=== PATIENT | male | born 1970 | race Caucasian/White ===

== ENCOUNTER 2020-01-03 10:05 | Emergency (ER) | payer OTHER, SELFPAY ==
--- NOTE | ~2020-01-03 | CT_ITS ---
EXAMINATION: CT abdomen pelvis wo con EXAM DATE: 01/03/2020 10:37 INDICATION: Right flank pain. TECHNIQUE: Spiral CT of the abdomen and pelvis was performed without contrast. Axial, coronal and sag ittal images were reviewed. The dose-length product (DLP) for this examination was 1404.67 mGy-cm. The exposure was tailored according to patient size (auto mA exposure control), and iterative reconst ruction (ASIR) was used as additional dose reduction technique. There is no prior study for comparis on. FINDINGS: There is a 5 x 7 mm stone in the right ureteropelvic junction with mild resultant hydroneph rosis. No other genitourinary calcifications. The prostate is unremarkable. The bladder is unremark able. The liver, spleen, adrenal glands and pancreas are unremarkable. Gallbladder is unremarkable. No biliary obstruction. There is no retroperitoneal or pelvic lymphadenopathy. The appendix is normal. The stomach and small bowel are unremarkable. There is expected amount of c olonic stool. No free intraperitoneal gas. The heart is normal in size. There are no pericardial or pleural effusions. Right basilar granuloma. There are no osteoblastic or osteolytic lesions ban ntified. IMPRESSION: 1. Right UPJ 5 x 7 mm stone, mild hydronephrosis. Reviewed, dictated and finalized at location B.
--- NOTE | ~2020-01-03 | XR_ITS ---
EXAMINATION: XR abdomen/kub 1V EXAM DATE: 01/03/2020 10:42 INDICATION: Right UPJ 5 x 7 mm stone. TECHNIQUE: Frontal projection of the upper abdomen, frontal projection lower abdomen/pelvis for inter pretation. There is no prior study for comparison. FINDINGS: Right UPJ stone measuring up to 7 mm identified between the right L3 and L4 transverse pro cesses, indicated. Nonobstructive bowel gas pattern. There are mild bony degenerative changes. IMPRESSION: Right UPJ stone identified. Reviewed, dictated and finalized at location B. IMPRESSION: Right UPJ stone identified.
[2020-01-03 10:31] LABS: Basophils Percent Auto 0.7 % (0.2-1.2); Eosinophils Absolute Auto 0.1 K/mm3 (0-0.3); Eosinophils Percent Auto 1.3 % (0-4.4); Hematocrit 43.2 % (42.0-52.0); Hemoglobin 14.4 g/dL (14.0-18.0); Immature Granulocyte Absolute 0.01 K/mm3 (0.00-0.031); Immature Granulocyte Percent A 0.2 % (0-0.5); Lymphocytes Absolute Auto 1.82 K/mm3 (0.9-3.2); Lymphocytes Percent Auto 30.3 % (18.3-44.2); Mean Corpuscular HGB Conc 33.3 g/dl (32-36); Mean Corpuscular Hemoglobin 27.9 pg (26-34); Mean Corpuscular Volume 83.7 fl (80-100); Mean Platelet Volume 10.1 fl (7.4-10.4); Monocytes Absolute Auto 0.5 K/mm3 (0.1-0.6); Monocytes Percent Auto 8.5 % (2.6-8.5); Neutrophils Absolute Auto 3.6 K/mm3 (1.3-6.7); Platelet Count Result 165 k/mm3 (150-375); Red Blood Count 5.16 M/mm3 (4.6-6.20); Red Cell Distribution Width 13.2 % (11.5-14.5)
[2020-01-03 10:44] LABS: Alanine Aminotransferase 40 U/L (4-50); Albumin Level 4.9 g/dL (3.5-5.1); Alkaline Phosphatase 66 U/L (38-126); Anion Gap 10 mmol/L (8-16); Aspartate Amino Transferase 31 U/L (17-59); Bilirubin,Total 0.6 mg/dL (0.2-1.3); Blood Urea Nitrogen 21 mg/dL (9-20); Calcium 9.7 mg/dL (8.4-10.2); Carbon Dioxide 23 mmol/L (22-30); Chloride 105 mmol/L (98-107); Estimated Glomerular Filt Rate > 60; Glucose 107 mg/dL (75-110); Potassium 4.4 mmol/L (3.4-5.0); Sodium 138 mmol/L (137-145)
--- NOTE | 2020-01-03 10:45 | ED.ABDPAIN ---
HPI - Abdominal Pain General Chief Complaint: Abdominal Pain Stated Complaint: right flank pain Time Seen by Provider: 01/03/20 10:12 Source: patient Mode of arrival: ambulatory Limitations: no limitations History of Present Illness HPI narrative: Patient is a 49-year-old male who presents to emergency department for evaluation of right flank pain that began acutely today as a sharp stabbing pain that intensified patient denies any similar occurrence in the past has not taken anything for his symptoms patient on arrival to emergency department is in the room in no distress patient denies radiation of pain does note he had some sweats denies vomiting diarrhea a few days ago had dark urine Related Data Allergies Allergy/AdvReac Type Severity Reaction Status Date / Time No Known Allergies Allergy Verified 01/03/20 10:57 Review of Systems Review of Systems: All systems reviewed & are unremarkable except as noted in HPI and below PMFSH Past Medical History Medical History (Updated 01/03/20 @ 12:33 by Pato Garcia PA-C) Tear of distal tendon of biceps Surgical History Surgical History (Updated 01/03/20 @ 10:46 by Pato Garcia PA-C) History of orthopedic surgery Social History Social History Smoking status: Former smoker Smoking end date: 04/11/97 Alcohol intake: current Exam Narrative: Exam Narrative: GENERAL: Well-appearing, well-nourished, uncomfortable, and in no acute distress. HEAD: Normocephalic, atraumatic. EYES: PERRLA and EOMI. ENT: Nares clear, no rhinorrhea or epistaxis. Mucous membranes moist. CHEST: Clear to auscultation. No respiratory distress. No wheezes rales or rhonchi HEART: Regular rate and rhythm. No murmur heard. Normal peripheral pulses. ABDOMEN: Soft, nontender, distended EXTREMITIES: Normal range of motion. No edema. SKIN: Warm, dry, no rash. NEURO: No focal deficits. Alert and oriented x3. PSYCH: Normal mood and affect. Course Course Emergency Course: Patient will go to the operative suite for stenting is resting comfortably in the room in no distress felt appropriate for outpatient reevaluation. Consultations Consultation #1: Discussed case with urology who saw the patient in the emergency department and will take patient to the operative suite Date: 01/03/20 Time: 12:32 Vital Signs Vital signs: Vital Signs Temperature 98.5 F 01/03/20 10:51 Pulse Rate 62 01/03/20 10:51 Respiratory Rate 16 01/03/20 10:51 Blood Pressure 133/88 01/03/20 10:51 Pulse Oximetry 97 01/03/20 10:51 Temperature 98.5 F 01/03/20 10:51 Pulse Rate 58 L 01/03/20 12:09 Respiratory Rate 18 01/03/20 12:09 Blood Pressure 127/68 01/03/20 12:09 Pulse Oximetry 100 01/03/20 12:09 MDM - Abdominal Pain MDM Narrative Medical decision making narrative: Patient in the room at this time no distress feeling better with medications will go to the operative suite for stenting Lab Data Result diagrams: 01/03/20 10:24 01/03/20 10:24 Labs: Lab Results 01/03/20 01/03/20 01/03/20 Range/Units 10:24 10:24 11:07 WBC 6.0 (4.5-10.0) K/mm3 RBC 5.16 (4.6-6.20) M/mm3 Hgb 14.4 (14.0-18.0) g/dL Hct 43.2 (42.0-52.0) % MCV 83.7 (80-100) fl MCH 27.9 (26-34) pg MCHC 33.3 (32-36) g/dl RDW 13.2 (11.5-14.5) % Plt Count 165 (150-375) k/mm3 MPV 10.1 (7.4-10.4) fl Immature Gran % (Auto) 0.2 (0-0.5) % Neut % (Auto) 59.0 (45.5-73.1) % Lymph % (Auto) 30.3 (18.3-44.2) % [place] % (Auto) 8.5 (2.6-8.5) % Eos % (Auto) 1.3 (0-4.4) % Baso % (Auto) 0.7 (0.2-1.2) % Lymph # (Auto) 1.82 (0.9-3.2) K/mm3 [place] # (Auto) 0.5 (0.1-0.6) K/mm3 Eos # (Auto) 0.1 (0-0.3) K/mm3 Baso # (Auto) 0.0 (0.0-0.1) K/mm3 Abs Immat Gran (auto) 0.01 (0.00-0.031) K/mm3 Absolute Neuts (auto) 3.6 (1.3-6.7) K/mm3 Absolute Nucleated
[2020-01-03 10:51] VITALS: BP 133/88; PULSE 62; RESP 16; TEMP 36.9; O2SAT 97
[2020-01-03] MEDS: SODIUM CHLORIDE 0.9% IV 1,000 ML 999 ML IV CONT ×2 (11:10→11:39)
[2020-01-03] MEDS: MORPHINE SULFATE (*CRX) 4 MG/ML INJ IV PUSH (11:15)
[2020-01-03 11:31] LABS: Add Urine Microscopic? YES; Appearance Urine Clear (Clear); Bacteria Urine Trace /hpf; Bilirubin Urine Negative (Negative); Blood Urine 3+ (Negative); Color Urine Yellow (Yellow); Glucose Urine UA Negative (Negative); Ketones Urine Negative (Negative); Leukocyte Esterase Ur Negative LEU/UL (Negative); Mucus Urine Few /lpf; Nitrate Urine Negative (Negative); Protein Urine Negative (Negative); RBC Urine 51-75 /hpf (0-2); Specific Grav Ur 1.019 (1.001-1.035); Squamous Epithelial Cell Urine Rare /hpf (Few); Urobilinogen Urine Negative mg/dL (<2.0); WBC Urine 0-3 /hpf
[2020-01-03] MEDS: HYDROmorphone HCL INJ (*CRX) 1 MG/ML SYR IV PUSH (11:46)
[2020-01-03 12:09] VITALS: BP 127/68; PULSE 58; RESP 18; O2SAT 100
--- NOTE | 2020-01-03 12:37 | WPDURCON ---
Assessment and Plan Assessment and plan (1) Urolithiasis: Code(s): N20.9 - Urinary calculus, unspecified Status: Acute Assessment and Plan: He will need to have a Right ESWL next week, he has had Ibuprofen on Tuesday this week, he was informed to avoid ASA, NSAIDs and any other blood thinning agents until his next procedure. Obtain urine culture. He understands that he will not likely pass this stone, he will follow up in the office next week for a repeat KUB. He is refusing to have a stent placed today and will go home with pain medication and Flomax. Urology Consult Note HPI Date Seen: 01/03/20 Requesting Physician: Deandre King MD Primary Care Provider: Walt Pena MD Consult Narrative Narrative: Allen Ro is a 49 year old male who presents with acute onset right lower quadrant pain. He states on Tuesday he noticed dark colored urine which cleared with pushing fluids, but the pain was noticed this morning and became very severe this morning at work, he was diaphoretic as well. He denies hematuria, dysuria, fever, chills, nausea, vomiting or frequency/urgency. His WBC is 6.0, creatinine 0.90 and UA shows microhemturia. His CT/KUB show a 5x7mm right UPJ stone. His pain continues despite dilaudid. Review of Systems Cardiovascular: Cardiovascular: Denies chest pain Respiratory: Respiratory: Reports no additional respiratory complaints Gastrointestinal: Gastrointestinal: Reports abdominal pain, Denies nausea and Denies vomiting Genitourinary: Genitourinary: Denies hematuria, Denies dysuria, Denies flank pain, Denies urinary frequency and Denies urinary urgency [facility] Past Medical History Medical History Tear of distal tendon of biceps Surgical History Surgical History History of orthopedic surgery Social History Social History Smoking status: Former smoker Smoking end date: 04/11/97 Alcohol intake: current Meds Home Medications and Allergies Home Medications Medication Instructions Recorded Confirmed Type rosuvastatin 5 mg tablet 5 mg PO DAILY #90 tablet 08/27/19 Rx Allergies Allergy/AdvReac Type Severity Reaction Status Date / Time No Known Allergies Allergy Verified 01/03/20 10:57 Vital Signs Vital Signs - 24 hr 01/03/20 10:51 01/03/20 12:09 Temperature 98.5 F Pulse Rate 62 58 L Respiratory Rate 16 18 Blood Pressure 133/88 127/68 Pulse Oximetry 97 100 Exam Resp: Effort & Inspection: normal respiratory effort Cardio: Rate: bradycardic GI: GI Palp: Yes Soft to palpation and Yes Tenderness to palpation present (GI) (RLQ) : General: Yes CVA tenderness on the right Extrem: General: no edema Results Labs CBC & Chem 7: 01/03/20 10:24 01/03/20 10:24 Labs: Short CBC 01/03/20 Range/Units 10:24 WBC 6.0 (4.5-10.0) K/mm3 Hgb 14.4 (14.0-18.0) g/dL Hct 43.2 (42.0-52.0) % Plt Count 165 (150-375) k/mm3 BMP 01/03/20 10:24 Sodium 138 Potassium 4.4 Chloride 105 Carbon Dioxide 23 BUN 21 H Creatinine 0.90 Glucose 107 Calcium 9.7 Liver Function 01/03/20 Range/Units 10:24 Total Bilirubin 0.6 (0.2-1.3) mg/dL AST 31 (17-59) U/L ALT 40 (4-50) U/L Alkaline Phosphatase 66 (38-126) U/L Albumin 4.9 (3.5-5.1) g/dL Urine 01/03/20 Range/Units 11:07 Urine Color Yellow (Yellow) Urine Appearance Clear (Clear) Urine pH 5.0 (5.0-9.0) Ur Specific [place] 1.019 (1.001-1.035) Urine Protein Negative (Negative) mg/dL Urine Glucose (UA) Negative (Negative) mg/dL
--- NOTE | 2020-01-03 12:45 | PC.NURSE ---
urology pa at bedside to discuss stenting option. pt indecisive whether or not he wants procedure.
[2020-01-03 13:23] VITALS: BP 131/86; PULSE 58; RESP 16
== END 2020-01-03 12:45 | disposition home or self-care (01) ==
PROVIDERS: Emergency Medicine Emergency Medical Services; Emergency Provider Emergency Medicine; PCP Family Medicine
DX: N13.2 Hydronephrosis with renal and ureteral calculous obstruction (principal); Z87.891 Personal history of nicotine dependence
CPT/HCPCS: 36415; 74018; 74176; 80053; 81001; 85025; 87086; 96361; 96374; 96375; 99284; J0131; J1170; J2270; J7030

== ENCOUNTER 2020-01-07 09:43 | Outpatient (CLI) | payer OTHER, SELFPAY ==
--- NOTE | ~2020-01-07 | XR_ITS ---
XR abdomen/kub 1V DATE: 01/07/2020 10:10 INDICATION: Right-sided abdominal pain. Ureteral stone. TECHNIQUE: AP projection, 2 views COMPARISON: 01/03/[address] abdomen pelvis FINDINGS: Previously reported calcified calculus of proximal right ureter at L3 level on 01/03/2020 KU B is no longer detected. No other urinary tract calcification is evident. The psoas shadows are intact. No visceromegaly is ev ident. No evidence of bowel obstruction. Included skeletal structures are unremarkable. The lung bases are clear. Heart size appears normal. IMPRESSION: Apparent resolution of right ureteral calcified calculus since 01/03/2020 Reviewed, dictated and finalized at Location A. Reviewed, dictated and finalized at location B. IMPRESSION: Apparent resolution of right ureteral calcified calculus since 01/02
== END 2020-01-07 09:44 | disposition home or self-care (01) ==
LOC: ANHIMG 09:54
PROVIDERS: PCP Family Medicine; Visit Provider Nurse Practitioner Adult Health
DX: N20.1 Calculus of ureter (principal)
CPT/HCPCS: 74018

== ENCOUNTER 2020-01-08 06:42 | Day surgery (SDC) | payer OTHER, SELFPAY ==
[2020-01-08] VITALS (7 sets, daily range): BP systolic 123–143; BP diastolic 73–91; PULSE 56–88; RESP 14–18; TEMP 36.1–37; O2SAT 97–100
--- NOTE | ~2020-01-08 | CT_ITS ---
EXAMINATION: CT abdomen pelvis wo con DATE: 01/08/2020 08:09 INDICATION: Right-sided abdominal pain TECHNIQUE: Computed tomography (CT) of the abdomen and pelvis was performed without intravenous contr ast. Automated exposure control and iterative reconstruction technique were employed. Exam dose: 129 0.59 mGy-cm total exam DLP. COMPARISON: 01/03/2020 CT abdomen pelvis FINDINGS: Calcified right lower lobe pulmonary granuloma and calcified right hilar nodes, consistent with old granulomatous disease. No infiltrate or consolidation is noted in the lower lung zones. Normal heart size. No pericardial or pleural effusion. The liver, gallbladder, bile ducts, spleen and pancreas and adrenal glands are unremarkable. No renal mass lesion is evident. Normal caliber of the abdominal aorta. No intraperitoneal or retroperitoneal or pelvic mass lesion or adenopathy or ascites. Approximately 4 x 6.5 mm calculus previously noted in the proximal right ureter on 01/03/2020 CT abdom en pelvis is now situated at the approximately S2 level of the more distal ureter. There is moderate proximal right hydroureteronephrosis as well as perinephric and periureteral stranding. No other urinary tract calculus is noted. There is no left-sided hydroureteronephrosis. There is mild to moderate prostate enlargement. The urinary bladder wall is mildly prominent in thickness. No bowel obstruction, bowel wall thickening, pneumatosis or intraperitoneal free air. Normal appendix . Diffuse idiopathic skeletal hyperostosis of the lower thoracic spine. There is mild degenerative buchanan ge of the lumbar spine. No suspicious osteolytic or osteoblastic lesions are noted. IMPRESSION: Approximately 4 x 7 mm calculus at the S2 level on the right, with moderate proximal rig ht hydroureteronephrosis, perinephric and periureteral stranding Reviewed, dictated and finalized at [facility]. Reviewed, dictated and finalized at location B. IMPRESSION: Approximately 4 x 7 mm calculus at the S2 level on the right, with moderate proximal right hydroureteronephrosis, perinephric and periureteral st randing
--- NOTE | ~2020-01-08 | XR_ITS ---
XR retrograde pyelo w/stent RT DATE: 01/08/2020 11:23 INDICATION: Stone extraction and stent placement TECHNIQUE: 5 spot C-arm images of the abdomen and pelvis 17.9 seconds fluoroscopy time [id number] mGym2 COMPARISON: None FINDINGS: A guide wire and subsequently internal urinary stent overlie the right ureter. The distal pigtail of the stent overlies the mid pelvis. IMPRESSION: Right internal urinary stent placement Reviewed, dictated and finalized at [facility]. Reviewed, dictated and finalized at location B.
--- NOTE | 2020-01-08 07:10 | PC.NURSE ---
Report received from ABRAHAM Kam. Pt standing at the door demanding pain medications. Explained to pt that ERP's are giving report and that will be in to see as soon as possible.
[2020-01-08 07:12] LABS: Basophils Percent Auto 0.5 % (0.2-1.2); Eosinophils Absolute Auto 0.1 K/mm3 (0-0.3); Eosinophils Percent Auto 1.6 % (0-4.4); Hematocrit 42.2 % (42.0-52.0); Hemoglobin 13.8 g/dL (14.0-18.0); Immature Granulocyte Absolute 0.02 K/mm3 (0.00-0.031); Immature Granulocyte Percent A 0.3 % (0-0.5); Mean Corpuscular HGB Conc 32.7 g/dl (32-36); Mean Corpuscular Hemoglobin 27.9 pg (26-34); Mean Corpuscular Volume 85.3 fl (80-100); Mean Platelet Volume 10.1 fl (7.4-10.4); Monocytes Absolute Auto 0.6 K/mm3 (0.1-0.6); Monocytes Percent Auto 9.9 % (2.6-8.5); Neutrophils Percent Auto 63.7 % (45.5-73.1); Platelet Count Result 150 k/mm3 (150-375); Red Blood Count 4.95 M/mm3 (4.6-6.20); Red Cell Distribution Width 13.1 % (11.5-14.5); White Blood Count 6.3 K/mm3 (4.5-10.0)
--- NOTE | 2020-01-08 07:23 | ED.ABDPAIN ---
HPI - Abdominal Pain General Chief Complaint: Abdominal Pain Stated Complaint: Kidney stone Time Seen by Provider: 01/08/20 07:13 History of Present Illness HPI narrative: Seen here on 01/02 for kidney stone. Had right 5x7 mm UPJ stone. He has had waxing and waning RLQ pain since that time. He had follow-up x-rays done yesterday which no longer showed a stone in this location. His pain is worse this morning. It has not changed in character. He does report dark urine, no definite hematuria. No nausea, vomiting, fever, constipation, diarrhea. Related Data Allergies Allergy/AdvReac Type Severity Reaction Status Date / Time No Known Allergies Allergy Verified 01/03/20 10:57 Review of Systems Review of Systems: All systems reviewed & are unremarkable except as noted in HPI and below Constitutional: Constitutional: Denies fever(s) Cardiovascular: Cardiovascular: Denies chest pain Respiratory: Respiratory: Denies dyspnea Gastrointestinal: Gastrointestinal: Reports abdominal pain, Denies constipation, Denies diarrhea, Denies nausea and Denies vomiting Genitourinary: Genitourinary: Denies dysuria and Denies urinary frequency Musculoskeletal: Musculoskeletal: Denies back pain Neurologic: Denies weakness [facility] Past Medical History Medical History (Updated 01/08/20 @ 09:42 by Gerry King MD) Kidney stone Tear of distal tendon of biceps Surgical History Surgical History History of orthopedic surgery Social History Social History Smoking status: Former smoker Smoking end date: 04/11/97 Alcohol intake: current Exam Const: General: healthy appearing, no acute distress and alert Orientation/consciousness: patient oriented x3 Other: Uncomfortable HENMT: Head: normal to inspection Neck: Neck: normal visual inspection and no lymphadenopathy Chest: Chest palpation & inspection: no tenderness Resp: Effort & Inspection: normal respiratory effort Auscultation: clear to auscultation bilaterally, no rales, no rhonchi and no wheezes Cardio: Jugular venous distension: no JVD Rate: regular rate Rhythm: regular rhythm Heart sounds: no murmurs GI: Inspection: non-distended GI Palp: Yes Soft to palpation, No Tenderness to palpation present (GI) and No Palpable mass present Skin: General skin exam: normal color Neuro: General: patient oriented x3 and moves all extremities Speech: normal speech Extrem: General: no edema Psych: Appearance: well kempt Affect: normal affect Course Course Emergency Course: Case discussed with Dr. King. He will take him to the OR today for stent or stone removal. Vital Signs Vital signs: Vital Signs Temperature 37.0 C 01/08/20 06:44 Pulse Rate 58 L 01/08/20 06:44 Respiratory Rate 17 01/08/20 06:44 Blood Pressure 141/76 H 01/08/20 06:44 Pulse Oximetry 100 01/08/20 06:44 Temperature 37.0 C 01/08/20 06:44 Pulse Rate 56 L 01/08/20 08:18 Respiratory Rate 16 01/08/20 08:18 Blood Pressure 140/89 01/08/20 08:18 Pulse Oximetry 100 01/08/20 08:18 MDM - Abdominal Pain MDM Narrative Medical decision making narrative: I will obtain a CT to evaluate location, presence of previously seen stone versus new condition Differential Diagnosis Differential diagnosis: Likely abdominal pain, acute appendicitis, calculus of kidney, constipation and other (diverticulitis) Medical Records Attestation: I reviewed the patient's medical records. Lab Data Attestation: I reviewed the patient's lab results. Result diagrams: 01/08/20 06:56 01/08/20 06:56 Labs: Lab Results 01/08/20 01/08/20 01/08/20 Range/Units 06:56 06:56 06:56 WBC 6.3 (4.5-10.0) K/mm3 RBC 4.95 (4.6-6.20) M/mm3 Hgb 13.8 L (14.0-18.0) g/dL Hct 42.2 (42.0-52.0) % MCV 85.3 (80-100) fl MCH 27.9 (26-34) pg MCHC
[2020-01-08 07:26] LABS: Anion Gap 9 mmol/L (8-16); Blood Urea Nitrogen 28 mg/dL (9-20); Calcium 9.3 mg/dL (8.4-10.2); Carbon Dioxide 30 mmol/L (22-30); Chloride 102 mmol/L (98-107); Estimated Glomerular Filt Rate 53; Glucose 111 mg/dL (75-110); Potassium 4.5 mmol/L (3.4-5.0); Sodium 141 mmol/L (137-145)
--- NOTE | 2020-01-08 07:34 | PC.NURSE ---
07:33 called chem to add on a hepatic
[2020-01-08 07:41] LABS: Alanine Aminotransferase 38 U/L (4-50); Albumin Level 4.6 g/dL (3.5-5.1); Alkaline Phosphatase 63 U/L (38-126); Aspartate Amino Transferase 35 U/L (17-59); Bilirubin,Total 0.4 mg/dL (0.2-1.3)
[2020-01-08] MEDS: fentaNYL CITRATE INJ (*CRX) 100 MCG/2 ML VIAL 50 MCG IV PUSH (07:42)
[2020-01-08] MEDS: SODIUM CHLORIDE 0.9% IV 1,000 ML 999 ML IV CONT (07:42)
--- NOTE | 2020-01-08 07:44 | PC.NURSE ---
Pt given pain medications and IVF initiated. Reports unable to void at this time.
--- NOTE | 2020-01-08 08:16 | PC.NURSE ---
Pt returns from CT, reports absolutely no relief from fentanyl, states whatever I got last that starts with a D worked really well for him. Pt appears to not be in as much pain, lying quietly on stretcher and not as restless. Dr. King made aware of pt request for further pain medications.
[2020-01-08] MEDS: HYDROmorphone HCL INJ (*CRX) 1 MG/ML SYR IV PUSH ×2 (08:29→10:24)
[2020-01-08 09:06] LABS: Add Urine Microscopic? YES; Appearance Urine Clear (Clear); Bilirubin Urine Negative (Negative); Blood Urine 2+ (Negative); Color Urine Yellow (Yellow); Glucose Urine UA Negative (Negative); Ketones Urine Negative (Negative); Leukocyte Esterase Ur Negative LEU/UL (Negative); Mucus Urine Rare /lpf; Nitrate Urine Negative (Negative); Protein Urine Negative (Negative); RBC Urine 21-50 /hpf (0-2); Specific Grav Ur 1.025 (1.001-1.035); Urobilinogen Urine Negative mg/dL (<2.0); WBC Urine 0-3 /hpf
--- NOTE | 2020-01-08 09:43 | PM.IMHP ---
H&P: HPI History of Present Illness Date/Time: 01/08/20 09:43 Chief complaint: Kidney stone Narrative: Allen Ro is a 49 year old male who has had multiple trips to the emergency room recently. He had a known 6-7 mm right proximal ureteral calculus. Allen had refused a stent last week and was scheduled for a lithotripsy this week. He presented again to the emergency room today with persistent right flank pain. CT scan revealed that the stone had migrated to the distal part of the ureter over the S2 level of the sacrum. Given his discomfort will proceed with cystoscopy right retrograde pyelogram possible ureteroscopy with stone extraction laser and stent placement. He is aware that if for unable to insert our instruments to place a stent and a minimum and address things at a later point time. Review of Systems Review of Systems: All systems reviewed & are unremarkable except as noted in HPI and below PMFSH Past Medical History Medical History Kidney stone Tear of distal tendon of biceps Surgical History Surgical History History of orthopedic surgery Social History Social History Smoking status: Former smoker Smoking end date: 04/11/97 Alcohol intake: current Meds Home Medications and Allergies Home Medications Medication Instructions Recorded Confirmed Type rosuvastatin 5 mg tablet 5 mg PO DAILY #90 tablet 08/27/19 Rx hydrocodone-acetaminophen 1 tablet PO Q6H PRN #20 tablet 01/03/20 Rx ketorolac 10 mg PO Q8H PRN #7 tablet 01/03/20 Rx prochlorperazine maleate 10 mg PO Q8H PRN #7 tablet 01/03/20 Rx [Compazine] tamsulosin [Flomax] 0.4 mg PO DAILY #10 cap 01/03/20 Rx Allergies Allergy/AdvReac Type Severity Reaction Status Date / Time No Known Allergies Allergy Verified 01/03/20 10:57 Vital Signs Vital Signs - 24 hr 01/08/20 06:44 01/08/20 08:18 Temperature 37.0 C Pulse Rate 58 L 56 L Respiratory Rate 17 16 Blood Pressure 141/76 H 140/89 Pulse Oximetry 100 100 Exam Const: General: uncomfortable HENMT: General nose exam: Normal nares present Eyes: General: appearance normal, both eyes and all related structures Resp: Effort & Inspection: normal respiratory effort Cardio: Rhythm: regular rhythm GI: GI Palp: Yes Soft to palpation Neuro: Speech: normal speech H&P: Results Labs Labs: Short CBC 01/08/20 Range/Units 06:56 WBC 6.3 (4.5-10.0) K/mm3 Hgb 13.8 L (14.0-18.0) g/dL Hct 42.2 (42.0-52.0) % Plt Count 150 (150-375) k/mm3 BMP 01/08/20 06:56 Sodium 141 Potassium 4.5 Chloride 102 Carbon Dioxide 30 BUN 28 H Creatinine 1.40 H Glucose 111 H Calcium 9.3 Liver Function 01/08/20 Range/Units 06:56 Total Bilirubin 0.4 (0.2-1.3) mg/dL Direct Bilirubin 0.0 (0-0.3) mg/dL AST 35 (17-59) U/L ALT 38 (4-50) U/L Alkaline Phosphatase 63 (38-126) U/L Albumin 4.6 (3.5-5.1) g/dL Urine 01/08/20 Range/Units 08:49 Urine Color Yellow (Yellow) Urine Appearance Clear (Clear) Urine pH 5.0 (5.0-9.0) Ur Specific [place] 1.025 (1.001-1.035) Urine Protein Negative (Negative) mg/dL Urine Glucose (UA) Negative (Negative) mg/dL Assessment and Plan Assessment and plan (1) Right ureteral stone: Code(s): N20.1 - Calculus of ureter Status: Acute Assessment and Plan: Plan for cystoscopy, right retrograde pyelogram, possible ureteroscopy with holmium laser and stone extraction, stent placement. I have discussed procedure in detail with patient. He is aware that if we are unable to place our instruments that a stent will simply be placed. The stone will then be addressed at a later point time.
--- NOTE | 2020-01-08 09:47 | WPDHPUPDATE1 ---
History and Physical Update Update Date/Time: 01/08/20 09:47 History and Physical has been reviewed, including an updated exam of the patient. There are NO changes in the patient's condition. Risks, benefits, and alternatives have been discussed and questions answered. Patient agrees to proceed with procedure.
[2020-01-08] MEDS: LACTATED RINGERS 1,000 ML 30 ML IV CONT (10:05)
--- NOTE | 2020-01-08 10:18 | WPDANESEPPF ---
Anes - Initial Pre Proc Eval Procedure: Operation Date: 01/08/20 11:15 Proposed Procedures p Cystoscopy, Right Ureteroscopy, Right Stone Extraction, Right Retrograde Pyelogram, Possible Right Stent Placement, - Deandre King MD s Possible Holmium Laser Procedure - Deandre King MD Date/Time: 01/08/20 10:18 Surgeon: Deandre King MD Pre Op Diagnosis: Kidney stone Patient Data Age: 49 Gender: M Height: Weight: 118.2 kg Last Vital Signs Temp 37.0 C 01/08/20 06:44 Pulse 56 L 01/08/20 08:18 Resp 16 01/08/20 08:18 BP 140/89 01/08/20 08:18 Pulse Ox 100 01/08/20 08:18 Allergies Allergy/AdvReac Type Severity Reaction Status Date / Time No Known Allergies Allergy Verified 01/03/20 10:57 Home Medications Medication Instructions Recorded Confirmed Type rosuvastatin 5 mg tablet 5 mg PO DAILY #90 tablet 08/27/19 Rx hydrocodone-acetaminophen 1 tablet PO Q6H PRN #20 tablet 01/03/20 Rx ketorolac 10 mg PO Q8H PRN #7 tablet 01/03/20 Rx prochlorperazine maleate 10 mg PO Q8H PRN #7 tablet 01/03/20 Rx [Compazine] tamsulosin [Flomax] 0.4 mg PO DAILY #10 cap 01/03/20 Rx Laboratory Tests 01/08/20 01/08/20 01/08/20 06:56 06:56 06:56 WBC 6.3 K/mm3 K/mm3 (4.5-10.0) RBC 4.95 M/mm3 M/mm3 (4.6-6.20) Hgb 13.8 g/dL L g/dL (14.0-18.0) Hct 42.2 % % (42.0-52.0) MCV 85.3 fl fl (80-100) MCH 27.9 pg pg (26-34) MCHC 32.7 g/dl g/dl (32-36) RDW 13.1 % % (11.5-14.5) Plt Count 150 k/mm3 k/mm3 (150-375) MPV 10.1 fl fl (7.4-10.4) Immature Gran % (Auto) 0.3 % % (0-0.5) Neut % (Auto) 63.7 % % (45.5-73.1) Lymph % (Auto) 24.0 % % (18.3-44.2) [place] % (Auto) 9.9 % H % (2.6-8.5) Eos % (Auto) 1.6 % % (0-4.4) Baso % (Auto) 0.5 % % (0.2-1.2) Lymph # (Auto) 1.50 K/mm3 K/mm3 (0.9-3.2) [place] # (Auto) 0.6 K/mm3 K/mm3 (0.1-0.6) Eos # (Auto) 0.1 K/mm3 K/mm3 (0-0.3) Baso # (Auto) 0.0 K/mm3 K/mm3 (0.0-0.1) Abs Immat Gran (auto) 0.02 K/mm3 K/mm3 (0.00-0.031) Absolute Neuts (auto) 4.0 K/mm3 K/mm3 (1.3-6.7) Absolute Nucleated RBC 0.0 K/mm3 K/mm3 (0.0-0.012) Nucleated RBC % 0.0 % % (0.0-0.2) Sodium 141 mmol/L mmol/L (137-145) Potassium 4.5 mmol/L mmol/L (3.4-5.0) Chloride 102 mmol/L mmol/L (98-107) Carbon Dioxide 30 mmol/L mmol/L (22-30) Anion Gap 9 mmol/L mmol/L (8-16) BUN 28 mg/dL H mg/dL (9-20) Creatinine 1.40 mg/dL H mg/dL (0.7-1.3) Estim Creat Clear Calc Not Reportable Estimated GFR 53 L (59 - ) Glucose 111 mg/dL H mg/dL (75-110) Calcium 9.3 mg/dL mg/dL (8.4-10.2) Total Bilirubin 0.4 mg/dL mg/dL (0.2-1.3) Direct Bilirubin 0.0 mg/dL mg/dL (0-0.3) AST 35 U/L U/L (17-59) ALT 38 U/L U/L (4-50) Alkaline Phosphatase 63 U/L U/L (38-126) Total Protein 8.0 g/dL g/dL (6.3-8.2) Albumin 4.6 g/dL g/dL (3.5-5.1) Urine Color Urine Appearance Urine pH Ur Specific [place] Urine Protein Urine Glucose (UA) Urine Ketones Ur Blood (Man) Urine Nitrate Urine Bilirubin Urine Urobilinogen Leukocyte Esterase Rfl Urine RBC Urine WBC Hyaline Casts Urine Mucus 01/08/20 08:49 WBC RBC Hgb Hct MCV MCH MCHC RDW Plt Count MPV Immature Gran % (Auto) Neut % (Auto) Lymph % (Auto) [place] % (Auto) Eos % (Auto) Baso % (Auto) Lymph # (Auto)
[2020-01-08] MEDS: ceFAZolin 2 GM/D5W 50 ML 2 GM/50 ML BAG IVPB (10:51)
--- NOTE | 2020-01-08 11:19 | P.OP_ITS ---
Procedure Note - Detailed Date of procedure: 01/08/20 Pre-op diagnosis: Kidney stone Right ureteral stone 6-7 mm Post-op diagnosis: same Procedure performed: Cystoscopy, right retrograde pyelogram, right ureteroscopy with stone extraction, right ureteral stent placement 4.8 [place] contour Description of procedure: Allen is taken to the operative suite and correctly identified. Once anesthesia was obtained was placed in the dorsal lithotomy position and prepped and draped usual sterile fashion. Twenty-two Belarusian scope was inserted into the bladder. There are no tumors noted. He does have somewhat of an enlarged prostate with an elevated median bar. The right ureteral orifice was cannulated with a guidewire. We dilated with an 8/10 dilator and then placed a ureteral access sheath in . The stone was too high for me to retrieve it with a rigid ureteral scope. A mini flexible ureteral scope was then inserted through the access sheath. Stone was visualized. Using an escape basket we were able to retrieve it in its entirety. Pyelogram was then performed to confirm placement of the stent. 4.8 [place]ian contour stent was then placed with the proximal end coiled in the renal pelvis and the distal end in the bladder. 2% viscous lidocaine was inserted into the urethra and patient is taken recovery room stable condition. A follow-up in a week's time for stent removal. Anesthesia: GLMA Surgeon: Deandre King MD Drains: Yes Packing: No Pathology: yes Complications: No immediate complications Condition: stable Disposition: PACU
--- NOTE | 2020-01-08 11:42 | SUR.PHASEI ---
PT AWAKE AND ALERT. DENIES PAIN OR NAUSEA. STATES URGE TO VOID. TALKATIVE.
--- NOTE | 2020-01-08 11:56 | SUR.PHASEI ---
PT AWAKE AND ALERT. READY TO GO TO [place]. MEETS DISCHARGE CRITERIA. DENIES PAIN OR NAUSEA.
== END 2020-01-08 12:40 | disposition home or self-care (01) ==
LOC: ANHED 09:42 → ANHSURGERY 09:50
PROVIDERS: Emergency Medicine; Emergency Provider Emergency Medicine; PCP Family Medicine; Visit Provider Urology
PROC: (CPT 52352; principal; 2020-01-08 11:15)
DX: N13.2 Hydronephrosis with renal and ureteral calculous obstruction (principal); E78.5 Hyperlipidemia, unspecified; E66.9 Obesity, unspecified; Z68.36 Body mass index [BMI] 36.0-36.9, adult
CPT/HCPCS: 52352; 52332; 36415; 74176; 74420; 80048; 80076; 81001; 82365; 85025; 88300; 96361; 96374; 96375; 99285; A9270; C1769; C1894; C2617; J0690; J1100; J1170; J2250; J2405; J2704; J3010; J7030; J7120; Q9966

== ENCOUNTER → 2022-11-26 15:57 | Outpatient (CLI) | payer OTHER, SELFPAY ==
--- NOTE | ~2022-11-26 | XR_ITS ---
EXAM: XR knee LT 3V DATE: 11/26/2022 16:18 HISTORY: M25.562 - Pain in left knee . COMPARISON: None available. FINDINGS: Normal mineralization. No fracture or dislocation. No lytic or blastic lesion. Mild medial joint space narrowing. Mild tricompartmental osteophytosis. Mild quadriceps and patellar enthesopath y. No erosion or periosteal change. Soft tissues within normal limits. IMPRESSION: Mild tricompartmental left knee osteoarthritis. Reviewed, dictated and finalized at location K.
== END ==
PROVIDERS: PCP Family Medicine; Visit Provider Family Medicine
DX: M17.12 Unilateral primary osteoarthritis, left knee (principal)
CPT/HCPCS: 73562

== ENCOUNTER 2025-01-01 10:37 | Emergency (ER) | payer OTHER, SELFPAY ==
--- NOTE | ~2025-01-01 | XR_ITS ---
Examination: XR knee LT 3V Clinical History: pain PT STATES NEW FALL WITH HX OF LIGAMENT/TENDON DAMAGE Comparison: 11/26/2022 Technique: 3 views left knee Findings/impression: 1. No fracture, dislocation, or effusion left knee. Reviewed, dictated and finalized at location R.
[2025-01-01 10:44] VITALS: BP 112/74; PULSE 71; RESP 16; TEMP 36.6; O2SAT 97
--- NOTE | 2025-01-01 11:10 | PC.NURSE ---
Dr. Downs at bedside assessing pt.
[2025-01-01 11:21] VITALS: BP 118/76; PULSE 86; RESP 18; O2SAT 97
--- OUTSIDE RECORDS SUMMARY | 2025-01-01 11:23 | XMS_ITS | Clinical Summary ---
Author Organization [facility] Address [address] [place] [id number] Care Team Providers Care Edging Supervisor Name Role Phone Aidan Shankar MD Primary Care Provider [phone] Allergies No known active allergies Medications rosuvastatin 5 MG tablet Take 5 mg by mouth daily. 08/27/2019 Active Active Problems No known active problems Family History Medical History Relation Comments Arthritis Brother ptsd Brother Cancer Father prostate PNE Father Relation Status Comments Brother Alive Father Maternal Grandfather Maternal Grandmother Mother Alive Paternal Grandfather Paternal Grandmother Social History Tobacco Use Types Packs/Day Years Used Date Smoking Tobacco: Some Days Cigars Smokeless Tobacco: Former Chew Quit: 2008 Comments:states he only smok ed cigars and does have a cigar now on occasion Alcohol Use Standard Drinks/Week Comments Yes 0 (1 standard drink = 0.6 oz pur e alcohol) weekends socially Sex and Gender Information Value Date Recorded Sex Assigned at Not on file Legal Sex Male 8:10 PM CDT Gender Identity Not on file Sexual Orientation Not on file Last Filed Vital Signs Vital Sign Reading Time Taken Comments Blood Pressure 126/62 10/22/2019 1:49 PM CDT Pulse 85 10/22/2019 1:49 PM CDT Temperature 36.3 C (97.4 F) 10/22/2019 1:49 PM CDT Respiratory Rate 18 10/22/2019 1:49 PM CDT Oxygen Saturation 96% 10/22/2019 1:49 PM CDT Inhaled Oxygen Concentration - - Weight 113.8 kg (250 lb 12.8 oz) 10/22/2019 1:49 PM CDT Height 180.3 cm (5' 11) 10/22/2019 1:49 PM CDT Body Mass Index 34.98 10/22/2019 1:49 PM CDT Plan of Treatment Health Maintenance Due Date Last Done Comments Colorectal Cancer Screening Colonoscopy (10 Years) 1968 Annual Physical 1971 Hepatitis C 1986 DTaP, Tdap and Td Vaccines ( 1 - Tdap) 1987 Hepatitis B Vaccines (1 of 3 - 19+ 3-dose series) 1987 Pneumococcal Vaccine: 50+ Ye ars (1 of 2 - PCV) 1987 Zoster Vaccines (1 of 2) 2018 COVID-19 Vaccine (1 - 2023-2 5 season) 2024 Meningococcal B Vaccine Aged Out No l onger eligible based on patient's age to complete this topic Meningococcal Vaccine Aged Out No donna rowena eligible based on patient's age to complete this topic RSV Immunizations Under 20 Months Aged Out No longer eligible based on patient's age to complete this topic Insurance [employer] [facility] Care Teams Edging Supervisor Relationship Specialty Start [place] [id number] [address] PCP - General INTERNAL MEDICINE 07/05/24
--- OUTSIDE RECORDS SUMMARY | 2025-01-01 11:23 | XMS_ITS | Clinical Summary ---
Author Organization [facility] Address [address] [place] [address] Care Team Providers Care Watershed Program Manager Name Role Phone Walt Pena MD Primary Care Provider Allergies No known active allergies Medications rosuvastatin (CRESTOR) 5 mg tabletIndicatio ns:hyperlipidem ia Take 5 mg by mouth nightly Active multivitamin capsuleIndicati ons:Vitamin Deficiency Prevention Take 1 capsule by mouth every morning Active docosahexaenoic acid/epa (FISH OIL ORAL)Indication s:rincon pplement Take by mouth nightly Active aspirin 81 mg enteric coated tabletIndicatio ns:prevention of thrombosis Take 81 mg by mouth nightly Active oxyCODONE-aceta minophen (PERCOCET) 5-325 mg per tabletIndicatio ns:Pain Take 1-2 tablets by mouth every 4 (four) hours as needed for pain 40 tablet 11/23/2019 Active HYDROcodone-maggy taminophen (NORCO) 5-325 mg per tablet TK 1 T PO Q 6 H PRF PAIN 01/03/2020 Active ketorolac (TORADOL) 10 mg tablet TK 1 T PO Q 8 H PRF PAIN 01/03/2020 Active prochlorperazin e (COMPAZINE) 10 mg tablet TK 1 T PO Q 8 H PRF NAUSEA OR VOM 01/03/2020 Active tamsulosin (FLOMAX) 0.4 mg extended release capsule TK 1 C PO D 01/03/2020 A ctive sulfamethoxazol e-trimethoprim (BACTRIM DS) 800-160 mg per tablet TK 1 T PO Q 12 H 01/08/2020 Active Active Problems Problem Noted Date Diagnosed Date Left elbow pain 11/06/2019 Rupture of right distal biceps tendon 11/06/2019 Overview (11/06/2019): Added automatically from request for surgery [id number] Surgical History Surgery Date Site/Laterality Comments COLONOSCOPY 2019 Medical History Medical History Date Comments Hypercholesteremia Social History Tobacco Use Types Packs/Day Years Used Date Smoking Tobacco: Never Cigarettes Qu it: 2007 Smokeless Tobacco: Former Quit: 2007 Alcohol Use Standard Drinks/Week Comments Yes 6 (1 standard drink = 0.6 oz pur e alcohol) Sex and Gender Information Value Date Recorded Sex Assigned at Not on file Legal Sex Male 4:55 PM CDT Gender Identity Not on file Sexual Orientation Not on file Obstetrics History Last Filed Vital Signs Vital Sign Reading Time Taken Comments Blood Pressure 131/77 11/14/2019 11:10 AM CDT Pulse 69 11/14/2019 11:15 AM CDT Temperature 36.4 C (97.5 F) 11/14/2019 11:15 AM CDT Respiratory Rate 13 11/14/2019 11:15 AM CDT Oxygen Saturation 98% 11/14/2019 11:15 AM CDT Inhaled Oxygen Concentration - - Weight 111.1 kg (245 lb) 11/14/2019 6:20 AM CDT Height 180.3 cm (5' 11) 11/14/2019 6:20 AM CDT Body Mass Index 34.17 11/14/2019 6:20 AM CDT Plan of Treatment Not on file Medical Devices Implanted Type Area Boat Hand Device Identifier Shelf Expiration Date Model / Serial / Lot [employer] Ar-2290 Fiberloop 3.2mm Drill Pin Needle [employer] Cannula Kit Suture - Sn/A - [id number] Implanted:Qty: 1 on 11/14/2019 by Taon Nicholson MD at [facility] Right: Arm [employer] 04/10/2024 AR-2290 / N/A / [id number] Insurance [employer] * Guarantor: Allen Ro Account Type Relation to Patient Date of Phone Billing Address Personal/Family Self [address] [place] [phone] * Guarantor: Allen Ro Account Type Relation to Patient Date of Phone Billing Address Personal/Family Self [address] [place] [phone] Care Teams Watershed Program Manager Relationship Specialty Start Date End Date Walt Pena MD [address] [phone] PCP - General Family Medicine 11/02/19
[2025-01-01] MEDS: KETOROLAC 30 MG/ML VIAL (*BKC) IV PUSH (11:26)
[2025-01-01] MEDS: MORPHINE SULFATE (*CRX) 4 MG/ML INJ IV PUSH ×2 (11:28→14:10)
--- NOTE | 2025-01-01 11:33 | ED.GENADULT ---
HPI - General Adult General Chief complaint: Extremity Injury, Lower <Yoana Reyes INFORMATION SYSTEMS SPECIALIST - Last Filed: 01/01/25 19:15> Stated complaint: broken knee <Yoana Mark August - Last Filed: 01/01/25 19:15> Time Seen by Provider: 01/01/25 10:46 <Yoana Mark August INFORMATION SYSTEMS SPECIALIST - Last Filed: 01/01/25 19:15> History of Present Illness HPI narrative: Allen Ro is a 54 y/o male who presents with left knee pain. He states that he was walking down the stairs and his left knee went out and behind him hyperextending the knee and now cannot straighten his knee <Yoana Mark August,N - Last Filed: 01/01/25 19:15> Allen Ro is a 54 y/o male who presents with left knee pain. He states that he was walking down the stairs and his left knee went out and behind him hyperflexing his knee and now cannot straighten his knee <Qamar Downs MD - Last Filed: 01/01/25 15:42> Related Data Allergies/adverse reactions: Allergies Allergy/AdvReac Type Severity Reaction Status Date / Time No Known Allergies Allergy Verified 01/01/25 10:53 <Yoana Mrak August, - Last Filed: 01/01/25 19:15> Review of Systems Review of Systems: All systems reviewed & are unremarkable except as noted in HPI and below <Yoana Reyes - Last Filed: 01/01/25 19:15> [facility] Past Medical History Medical History: Medical History Hyperlipidemia Kidney stone Tear of distal tendon of biceps <Yoana Reyes INFORMATION SYSTEMS SPECIALIST - Last Filed: 01/01/25 19:15> Surgical History Surgical History: Surgical History History of orthopedic surgery <Yoana Reyes INFORMATION SYSTEMS SPECIALIST - Last Filed: 01/01/25 19:15> Social History Social History: Social History Social History: Spouse Smoking status: Former smoker Tobacco type: cigarettes Second hand tobacco smoke exposure: No Smoking end date: 04/11/97 Alcohol intake: current Substance use: never Substance use type: does not use Currently Unemployed: No Education: Don't Know Difficulty w/ Childcare or Family Care: No Living arrangements: with family Occupation/Education: occupation Gender identity (if verbalized by the patient): Male Sexual Orientation (if Verbalized by the Patient): Straight or Heterosexual <Yoana Reyes APRN - Last Filed: 01/01/25 19:15> Exam Narrative: GENERAL: Well-appearing, well-nourished, and in no acute distress. HEAD: Normocephalic, atraumatic. EYES: PERRLA and EOMI. ENT: Nares clear, no rhinorrhea or epistaxis. Mucous membranes moist. Oropharynx without tonsillar hypertrophy exudate or other lesions. NECK: Supple. No adenopathy or masses. No carotid bruits or JVD CHEST: Clear to auscultation. No respiratory distress. No wheezes rales or rhonchi HEART: Regular rate and rhythm. No murmur heard. Normal peripheral pulses. EXTREMITIES: Left knee flexed , with indention to the supra patellar region + pain , no pain to patella or tib fib/ distal pulses present SKIN: Warm, dry, no rash. NEURO: No focal deficits. Alert and oriented x3. PSYCH: Normal mood and affect. <Yoana Reyes, INFORMATION SYSTEMS SPECIALIST - Last Filed: 01/01/25 19:15> Course Course Emergency Course: 54-year-old male presenting with a quadriceps rupture. Physical exam shows loss of the knee extensor mechanism w/ a palpaple divot above the patella. Pain was controlled in the ED. Case was discussed Dr. Luis. Patient be put in a knee immobilizer and crutches. Discharged with Motrin Tylenol and oxycodone. Instructed to call orthopedics tomorrow morning to arrange close follow-up. Return for severe pain or weakness to his leg. <Qamar Downs MD - Last Filed: 01/01/25 15:42> Vital Signs Vital signs: Vital Signs Temperature 36.6 C 01/01/25 10:44 Pulse Rate 71 01/01/25 10:44 Respiratory Rate 16 01/01/25 10:44 Blood Pressure 112/74 01/01/25 10:44 Pulse Oximetry 97 01/01/25 10:44 Oxygen Delivery Room Air 01/01/25 10:44 Temperature 36.6 C 01/01/25 10:44 Pulse Rate 57 L 01/01/25 15:43 Respiratory Rate 16 01/01/25 15:43 Blood Pressure 111/72 01/01/25 15:43 Pulse Oximetry 100 01/01/25 15:43 Oxygen Delivery Room Air 01/01/25 10:44 <Yoana Reyes, INFORMATION SYSTEMS SPECIALIST - Last Filed: 01/01/25 19:15> Vital Signs Temperature 36.6 C 01/01/25 10:44 Pulse Rate 71 01/01/25 10:44 Respiratory Rate 16 01/01/25 10:44 Blood Pressure 112/74 01/01/25 10:44 Pulse Oximetry 97 01/01/25 10:44 Oxygen Delivery Room Air 01/01/25 10:44 Temperature 36.6 C 01/01/25 10:44 Pulse Rate 57 L 01/01/25 15:43 Respiratory Rate 16 01/01/25 15:43 Blood Pressure 111/72 01/01/25 15:43 Pulse Oximetry 100 01/01/25 15:43 Oxygen Delivery Room Air 01/01/25 10:44 <Qamar Downs MD - Last Filed: 01/01/25 15:42> Medical Decision Making MDM Narrative Medical decision making narrative: consulted with my attending Dr. Downs who examined pt and believes this to be a quadriceps tendon rupture will check and XR and treat his pain and reach out to Ortho Dr. Downs assumed disopostion of patient, talked with ortho and discharged home. <Yoana Reyes, INFORMATION SYSTEMS SPECIALIST - Last Filed: 01/01/25 19:15> Vital Signs Vital Signs: Vital Signs Temperature 36.6 C 01/01/25 10:44 Pulse Rate 71 01/01/25 10:44 Respiratory Rate 16 01/01/25 10:44 Blood Pressure 112/74 01/01/25 10:44 Pulse Oximetry 97 01/01/25 10:44 Oxygen Delivery Room Air 01/01/25 10:44 Temperature 36.6 C 01/01/25 10:44 Pulse Rate 57 L 01/01/25 15:43 Respiratory Rate 16 01/01/25 15:43 Blood Pressure 111/72 01/01/25 15:43 Pulse Oximetry 100 01/01/25 15:43 Oxygen Delivery Room Air 01/01/25 10:44 vitals reviewed <Yoana Reyes APRN - Last Filed: 01/01/25 19:15> Vital Signs Temperature 36.6 C 01/01/25 10:44 Pulse Rate 71 01/01/25 10:44 Respiratory Rate 16 01/01/25 10:44 Blood Pressure 112/74 01/01/25 10:44 Pulse Oximetry 97 01/01/25 10:44 Oxygen Delivery Room Air 01/01/25 10:44 Temperature 36.6 C 01/01/25 10:44 Pulse Rate 57 L 01/01/25 15:43 Respiratory Rate 16 01/01/25 15:43 Blood Pressure 111/72 01/01/25 15:43 Pulse Oximetry 100 01/01/25 15:43 Oxygen Delivery Room Air 01/01/25 10:44 <Qamar Downs MD - Last Filed: 01/01/25 15:42> Discharge Plan Discharge Clinical Impression: Quadriceps tendon rupture <Yoana Reyes INFORMATION SYSTEMS SPECIALIST - Last Filed: 01/01/25 19:15> Patient Disposition: Home <Yoana Reyes INFORMATION SYSTEMS SPECIALIST - Last Filed: 01/01/25 19:15> Condition: Stable <Yoana Ryees APRN - Last Filed: 01/01/25 19:15> Instructions: Antibiotic Form, Knee Immobilizer (ED), Tendon Rupture (ED) <Yoana Reyes, INFORMATION SYSTEMS SPECIALIST - Last Filed: 01/01/25 19:15> Additional Instructions: You were seen in the emergency department for a quadriceps rupture. Please use Motrin and Tylenol for pain. Use oxycodone for breakthrough pain. Please call 's office 1st thing tomorrow morning to arrange close follow-up. Please use the knee immobilizer and crutches 1 walking. If you develop severe leg pain please return to the ED. <Yoana Reyes INFORMATION SYSTEMS SPECIALIST - Last Filed: 01/01/25 19:15> Patient Language: Telugu <Yoana Reyes INFORMATION SYSTEMS SPECIALIST - Last Filed: 01/01/25 19:15> Prescriptions: New acetaminophen 500 mg tablet 1,000 mg PO TID PRN (Reason: shakira) 7 Days Qty: 42 0RF oxycodone 5 mg tablet 5 mg PO Q4H PRN (Reason: pain) Qty: 14 0RF ibuprofen 800 mg tablet 800 mg PO TID PRN (Reason: pain) 7 Days Qty: 21 0RF No Action rosuvastatin 5 mg tablet 5 mg PO DAILY Qty: 90 0RF <Yoana Reyes, INFORMATION SYSTEMS SPECIALIST - Last Filed: 01/01/25 19:15> Follow-up/Referrals: Walt Pena MD [Primary Care Provider, Family Practice] Thanh Powers MD [Physician, Orthopedics] - 1 Day Referral Note: Quadriceps tendon rupture <Yoana Reyes, INFORMATION SYSTEMS SPECIALIST - Last Filed: 01/01/25 19:15>
[2025-01-01 14:14] VITALS: BP 126/86; PULSE 74; RESP 14; O2SAT 99
--- NOTE | 2025-01-01 15:20 | PC.NURSE ---
Dr. Downs at bedside updating pt.
[2025-01-01] MEDS: ACETAMINOPHEN 500 MG TABLET 1000 MG PO (15:27)
[2025-01-01] MEDS: HYDROmorphone HCL INJ (*CRX) 1 MG/ML SYR 0.5 MG IV PUSH (15:28)
[2025-01-01 15:43] VITALS: BP 111/72; PULSE 57; RESP 16; O2SAT 100
== END 2025-01-01 15:59 | disposition home or self-care (01) ==
PROVIDERS: Emergency Provider Nurse Practitioner Family; PCP Family Medicine
DX: S76.112A Strain of left quadriceps muscle, fascia and tendon, initial encounter (principal); X50.0XXA Overexertion from strenuous movement or load, initial encounter; Z87.891 Personal history of nicotine dependence
CPT/HCPCS: 73562; 96374; 96375; 96376; 99284; A9270; J1171; J1885; J2270